=== PATIENT | female | born 1960 | race Caucasian/White ===

== ENCOUNTER → 2022-01-08 | Outpatient (CLI) | payer BC ==
[~2022-01-08] MED LIST: ALBU8.5H2 IH; CEPH500C PO; HYDR-3454 PO; LISI20TA PO; LOVA20TA2 PO; MULT-974 PO; OMEP20CA6 PO; ZOLOFT PO
[2022-01-08 10:44] VITALS: BP 159/82
== END ==
LOC: CARD 09:40
PROVIDERS: ATTEND Internal Medicine Cardiovascular Disease
DX: I11.9 Hypertensive heart disease without heart failure (principal); I25.10 Atherosclerotic heart disease of native coronary artery without angina pectoris
CPT/HCPCS: C8929; C8930; 93306

== ENCOUNTER 2022-01-15 08:00 | Day surgery (SDC) | payer BC ==
[2022-01-15] VITALS (10 sets, daily range): BP systolic 114–159; BP diastolic 65–76
[~2022-01-15] VITALS: Ht 160 cm; Wt 91.2 kg
[2022-01-15 07:25] LABS: BILIRUBIN,URINE NEGATIVE (NEGATIVE); CLARITY,URINE CLEAR; COLOR,URINE YELLOW; GLUCOSE, URINE (UA) NEGATIVE (NEGATIVE); HEMATOCRIT 36 % (35-52); KETONES,URINE NEGATIVE (NEGATIVE); LEUKOCYTE ESTERASE ,URINE NEGATIVE (NEGATIVE); MEAN CORPUSCULAR HEMOGLOBIN 25 pg (25-34); MEAN CORPUSCULAR HGB CONC 30 g/dL (32-36); MEAN CORPUSCULAR VOLUME 83 fL (80-99); NITRITE,URINE NEGATIVE (NEGATIVE); PH,URINE 5.5 (5-9); PLATELET COUNT 307 10^3/uL (130-400); PROTEIN,URINE NEGATIVE (NEGATIVE); WHITE BLOOD COUNT 5.4 10^3/uL (4.3-11.0)
[2022-01-15 07:38] LABS: INR 0.9 (0.8-1.4); PROTHROMBIN TIME PATIENT 12.8 SEC (12.2-14.7)
--- NOTE | 2022-01-15 07:41 | Diagnostic Imaging Report ---
Clinical indications: Patient with abnormal stress test. EXAM: Portable chest x-ray upright view. COMPARISON: None. FINDINGS: Lungs/pleura: Lungs are clear. There is no pneumothorax. There is no pleural effusion. Mediastinum: Unremarkable. Pulmonary vasculature: Unremarkable. Heart: Unremarkable. Bones/extrathoracic soft tissue: There are degenerative spurs involving the thoracic spine. IMPRESSION: There is no radiographic evidence of acute cardiopulmonary process. Dictated by: Dictated on workstation # [id number]
[2022-01-15 07:43] LABS: BACTERIA,URINE NEGATIVE /HPF
[2022-01-15 07:45] LABS: BILIRUBIN,TOTAL 0.5 MG/DL (0.1-1.0); CALCIUM 9.1 MG/DL (8.5-10.1); CREATININE SERUM 0.78 MG/DL (0.60-1.30); TOTAL PROTEIN 7.3 GM/DL (6.4-8.2)
[~2022-01-15 08:00] MED LIST changes: +ATOR10TA66 PO; +HEParin (CATH LAB) 2,000 ML IV ONE; +HEParin 1000 UNIT/ML (10ML VIAL) FOR BOLUS ONE; +IBUP-1780 PO; +LIDOCAINE 1% INJ 30 ML (XYLOCAINE) VIAL ONE; +LISI20TA26 PO; +MIDAZOLAM 5 MG/5 ML (VERSED) VIAL ONE; +MTP25TSR PO; +NITRO DRIP 25000 MCG/D5W 0 ML IV ONE; +NS IV 1000 ML 1,000 ML IV SCH; +NS IV 1000 ML 1,000 ML ONE; +OMEP-401 PO; +RT-ALBUINH INH; +SERT-414 PO; +VERAPAMIL 5 MG/2 ML (CALAN) VIAL IV ONE; +fentaNYL INJ 100 MCG/2 ML AMP ONE
--- NOTE | 2022-01-15 08:05 | Cardiac Procedure Note-CS/ASA ---
Pre-Procedure Note Pre-Op Procedure Note Date H&P Reviewed: Jan 15, 2022 Time H&P Reviewed: 08:05 History & Physical: H&P Reviewed, Patient Examed, No changes noted Pre-Operative Diagnosis: Hammertoes left 2, 4, 5 Conscious Sedation Pre-Proced Time 08:05 ASA Score 3 For ASA 3 and 4: Consider anesthesia and medical clearance. Also, for patients with a history of failed moderate sedation consider anesthesia. Airway Lungs Heart ASA score ASA 1: a normal healthy patient ASA 2: a patient with a mild systemic disease (mid diabetes, controlled hypertension, obesity ASA 3: a patient with a severe systemic disease that limits activity (angina, COPD, prior Myocardial infarction) ASA 4: a patient with an incapacitating disease that is a constant threat to life (CHF, renal failure) ASA 5: a moribund patient not expected to survive 24 hrs. (ruptured aneurysm) ASA 6: a declared brain- patient whose organs are being harvested. For emergent operations, add the letter E after the classification Mallampati Classification Grade 3 Sedation Plan Analgesia, Amnesia, Plan communicated to team members, Discussed options with patient/fam, Discussed risks with patient/fam The patient is an appropriate candidate to undergo the planned procedure, sedation, and anesthesia. The patient immediately re-assessed prior to indication. GUDELIA HOLBROOK MD Jan 15, 2022 08:05
[2022-01-15] MEDS ORDERED: IBUP-2473 PO (08:07)
--- NOTE | 2022-01-15 09:08 | Discharge Inst-Post CATH ---
Discharge Inst-CATH/EP Problems Reviewed?: Yes Post Cardiac Cath/EP D/C Inst Follow Up/Plan Appointment with Dr. Clark's office in 2 to 4 weeks <b>CARDIAC CATH/EP PROCEDURE DISCHARGE INSTRUCTIONS</b> ACTIVITY * Go Home directly and rest. * Limit activity of the leg (or wrist if it was used) for 7 days including aer obics, swimming, jogging, bicycling, etc. * Restrict stair-climbing for 7 days if possible, if not, climb up with your non-cath leg, then bring together on the same step. * Avoid lifting, pushing, pulling or excessive movement of the affected extremi ty for 7 days. * Customary sexual activity may be resumed after 2 days-use caution not to use a position that strains or causes pain to the affected extremity. * No driving for 24 hours. * NO SMOKING. * Avoid straining for bowel movements for 7 days. * Gentle walking on level ground is allowed. * Returning to work will depend on the type of procedure and the results. Your doctor will discuss this with you. CALL YOUR DOCTOR FOR ANY OF THE FOLLOWING: *If bleeding from the puncture site occurs- Apply gentle pressure to site with clean cloth and call your doctor or EMS. * If a knot or lump forms under the skin, increases in size, or causes pain. * If bruising appears to be worsening or moving further down your leg instead of disappearing. * Temperature above 101 F. CARE OF YOUR GROIN INCISION; * Bruising or purple discoloration of the skin near the puncture site is common. * You may shower only, no bathtub bathing for 5 days. Be careful to avoid slipping as your leg may feel stiff. * If a closure device was used on your femoral artery, please see the attached guide regarding care of the device and your leg. * Leave dressing on FOR 24 hours. CARE OF YOUR WRIST INCISION; * Bruising or purple discoloration of the skin near the puncture site is common. * You may shower. * DO NOT submerge wrist. * Leave dressing on FOR 24 hours. GUDELIA CLARK MD Jan 15, 2022 09:08
--- NOTE | 2022-01-15 09:11 | Cardiac Cath Report ---
Cardiac Cath Report Physician (s)/Draw In Hand (s) Physician GUDELIA HOLBROOK MD Pre-Procedure Diagnosis Pre-Procedure Diagnosis: Coronary artery disease Post-Procedure Note Procedure Start Date: Jan 15, 2022 Name of Procedure: Left heart catheterization Findings/Procedure Note PROCEDURE NOTE: 61-year-old lady with recurrent chest pain, had an abnormal stress test and scheduled for cardiac catheterization possible PTCA. After explaining the procedure to the patient, all pros and cons were explained, all questions were answered. The patient signed the consent and then she was placed in the cardiac catheterization laboratory. Groin was prepped in SL fashion local anesthesia was used. Attempt to access the radial artery has failed due to tortuosity in the radial artery. Sheath placed in the right femoral artery. Layton' right and left catheter were used to access the coronary system. Layton right catheter was prolapsed to the left ventricular cavity, pressure was measured, pullback LV to aorta was done, no left ventriculogram was done. At the end of the procedure the sheath was removed. Closure device was deployed FINDINGS: Hemodynamics LV 126/16, end-diastolic pressure of 16 Aorta 128/61 mean of 87 ANATOMY: Left Main is free of obstructive disease Left Anterior Descending is free of obstructive disease Left Circumflex is tortuous artery with no significant obstructive disease Right Coronary Artery is dominant artery with no obstructive disease LV Gram was not done, pressure was measured CONCLUSION: 1. No significant obstructive coronary artery disease 2. Normal left ventricular end-diastolic pressure DISCUSSION AND RECOMMENDATION: Abnormal stress test is probably due to extracardiac attenuation, no intervention is recommended Anesthesia Type: Conscious Sedation Estimated blood loss (mL): 15 ml Contrast Amount: 22 ml Total Radiation Dose: 219 mGy Post-Procedure Diagnosis Post-operative diagnosis: Chest pain Coronary artery disease Hypertension Hyperlipidemia GUDELIA HOLBROOK MD Jan 15, 2022 09:11
[2022-01-15] MEDS ORDERED: NS IV 1000 ML 1,000 ML IV SCH (09:15)
[2022-01-15] MEDS ORDERED: PATIENT MAY USE OWN MEDS, ALL PO SCH (09:15)
== END 2022-01-15 13:40 | disposition home or self-care (01) ==
LOC: CATH 08:00 → SDC 09:13 → CATH 13:40
PROVIDERS: ATTEND Internal Medicine Cardiovascular Disease
DX: R07.9 Chest pain, unspecified (principal); I25.10 Atherosclerotic heart disease of native coronary artery without angina pectoris; I10 Essential (primary) hypertension; E78.5 Hyperlipidemia, unspecified; I65.23 Occlusion and stenosis of bilateral carotid arteries; R00.2 Palpitations; E78.2 Mixed hyperlipidemia; Z87.891 Personal history of nicotine dependence; Z82.49 Family history of ischemic heart disease and other diseases of the circulatory system
CPT/HCPCS: 36140; 71045; 80053; 80061; 81000; 85027; 85610; 85730; 87081; 93005; 93458; C1760; C1894; 36415

== ENCOUNTER 2022-04-08 14:43 | Emergency (ER) | payer BC ==
[~2022-04-08] VITALS: Ht 160 cm; Wt 91.0 kg
[~2022-04-08 14:43] MED LIST changes: -HEParin (CATH LAB) 2,000 ML IV ONE; -HEParin 1000 UNIT/ML (10ML VIAL) FOR BOLUS ONE; +IBUP-2473 PO; -LIDOCAINE 1% INJ 30 ML (XYLOCAINE) VIAL ONE; -MIDAZOLAM 5 MG/5 ML (VERSED) VIAL ONE; -NITRO DRIP 25000 MCG/D5W 0 ML IV ONE; -NS IV 1000 ML 1,000 ML IV SCH; -NS IV 1000 ML 1,000 ML ONE; -VERAPAMIL 5 MG/2 ML (CALAN) VIAL IV ONE; -fentaNYL INJ 100 MCG/2 ML AMP ONE
--- NOTE | 2022-04-08 14:55 | ED Cardiac General ---
History of Present Illness General Stated Complaint: SOB; ELEV HR History of Present Illness Date Seen by Provider: Apr 08, 2022 Time Seen by Provider: 14:54 Initial Comments 82-year-old female with PMH of HTN/depression/HLD/asthma/cath in January 2022 which was negative, is here with complaints of tachycardia and palpitations earlier today. Patient states that her phone showed that her heart rate was 191 with normal blood pressure earlier today. Patient stated that at the time she thinks she had some palpitations. Patient has been having shortness of breath for the past week or so and has been using her inhalers, but it has not been helping much. Patient had COVID in 2021 in July, and she has had occasional palpitations since then. Patient also has a chronic cough that has been present since COVID. Patient has seen a commutator v ring assembler and been worked up for it but she has had a negative work-up so far. In the ER patient's heart rate and vitals are stable, and patient does not have any symptoms here in the ER. Denies chest pain, fever and chills, URI symptoms, nausea vomiting, abdominal pain, diarrhea. Allergies and Home Medications Allergies Coded Allergies: Sulfa (Sulfonamide Antibiotics) (Unverified Allergy, Unknown, 03/29/14) Patient Home Medication List Home Medication List Reviewed: Yes Albuterol Sulfate (Ventolin Hfa) 1 Puff Puff, 2 PUFF INH Q6H PRN for SHORTNESS OF BREATH, (Reported) Entered as Reported by: TASHIA CATHERINE on 01/15/22 075 Atorvastatin Calcium (Atorvastatin Calcium) 10 Mg Tablet, 10 MG PO DAILY, (Reported) Entered as Reported by: TASHIA CATHERINE on 01/15/22 075 Ibuprofen (Ibuprofen) 200 Mg Tablet, 800 MG PO Q6H PRN for PAIN-MILD (1-4), (Reported) Entered as Reported by: TASHIA CATHERINE on 01/15/22 08 Lisinopril (Lisinopril) 20 Mg Tablet, 20 MG PO DAILY, (Reported) Entered as Reported by: TASHIA CATHERINE on 01/15/22 075 Metoprolol Succinate (Metoprolol Succinate) 25 Mg Tab.er.24h, 25 MG PO HS, (Reported) Entered as Reported by: TASHIA CATHERINE on 01/15/22755 Omeprazole (Omeprazole) 20 Mg Tab.rap.dr, 20 MG PO DAILY, (Reported) Entered as Reported by: TASHIA CATHERINE on 01/15/22755 Sertraline HCl (Sertraline HCl) 100 Mg Tablet, 100 MG PO DAILY, (Reported) Entered as Reported by: TASHIA CATHERINE on 01/15/22755 Review of Systems Review of Systems Constitutional: no symptoms reported EENTM: No Symptoms Reported Respiratory: Cough, Shortness of Air Cardiovascular: Palpitations Gastrointestinal: No Symptoms Reported Genitourinary: No Symptoms Reported Musculoskeletal: no symptoms reported Skin: no symptoms reported Psychiatric/Neurological: No Symptoms Reported Endocrine: No Symptoms Reported Hematologic/Lymphatic: No Symptoms Reported Past Wugqocw-Xubozt-Zegcvc Hx Past Medical History Section, Gallbladder, Hysterectomy, Orthopedic High Cholesterol, Hypertension Gastroesophageal Reflux Physical Exam Vital Signs Vital Signs - First Documented 04/08/22 15:15 Temp 35.5 Pulse 85 Resp 22 B/P (MAP) 116/64 (81) Pulse Ox 97 O2 Delivery Room Air Capillary Refill : Height, Weight, BMI Height: 5'3.00" Weight: 188lbs. oz. 85.275731nf; 35.62 BMI Method: General Appearance: No Apparent Distress, WD/WN, Anxious HEENT: PERRL/EOMI Neck: Full Range of Motion Respiratory: Chest Non Tender, Lungs Clear, Normal Breath Sounds Cardiovascular: Regular Rate, Rhythm, No Edema Gastrointestinal: Normal Bowel Sounds, Non Tender, Soft Neurologic/Psychiatric: Alert, Oriented x3, No Motor/Sensory Deficits, Normal Mood/Affect, seed technician II-XII Norm as Tested Skin: Normal Color Focused Exam Lactate Level 04/08/22 15:00: Lactic Acid Level 0.95 Lactic Acid Level Laboratory Tests Test 04/08/22 15:00 Lactic Acid Level 0.95 MMOL/L (0.50-2.00) Progress/Results/Core Measures Results/Orders Lab Results Laboratory Tests Test 04/08/22 14:54 04/08/22 15:00 04/08/22 15:01 04/08/22 15:17 Range/Units White Blood Count 5.9 4.3-11.0 10^3/uL Red Blood Count 4.67 3.80-5.11 10^6/uL Hemoglobin 11.6 11.5-16.0 g/dL Hematocrit 37 35-52 % Mean Corpuscular Volume 79 L 80-99 fL Mean Corpuscular Hemoglobin 25 25-34 pg Mean Corpuscular Hemoglobin Concent 32 32-36 g/dL Red Cell Distribution Width 17.0 H 10.0-14.5 % Platelet Count 339 130-400 10^3/uL Mean Platelet Volume 9.1 9.0-12.2 fL Immature Granulocyte % (Auto) 0 % Neutrophils (%) (Auto) 50 42-75 % Lymphocytes (%) (Auto) 35 12-44 % Monocytes (%) (Auto) 8 0-12 % Eosinophils (%) (Auto) 5 0-10 % Basophils (%) (Auto) 1 0-10 % Neutrophils # (Auto) 3.0 1.8-7.8 10^3/uL Lymphocytes # (Auto) 2.1 1.0-4.0 10^3/uL Monocytes # (Auto) 0.5 0.0-1.0 10^3/uL Eosinophils # (Auto) 0.3 0.0-0.3 10^3/uL Basophils # (Auto) 0.1 0.0-0.1 10^3/uL Immature Granulocyte # (Auto) 0.0 0.0-0.1 10^3/uL Prothrombin Time 12.3 12.2-14.7 SEC INR Comment 0.9 0.8-1.4 Activated Partial Thromboplast Time 29 24-35 SEC D-Dimer 1.02 H 0.00-0.49 UG/ML Sodium Level 138 135-145 MMOL/L Potassium Level 3.7 3.6-5.0 MMOL/L Chloride Level 101 98-107 MMOL/L Carbon Dioxide Level 25 21-32 MMOL/L Anion Gap 12 5-14 MMOL/L Blood Urea Nitrogen 21 H 7-18 MG/DL Creatinine 0.94 0.60-1.30 MG/DL Estimat Glomerular Filtration Rate 68 BUN/Creatinine Ratio 22 Glucose Level 110 H 70-105 MG/DL Calcium Level 9.5 8.5-10.1 MG/DL Corrected Calcium 9.4 8.5-10.1 MG/DL Magnesium Level 2.0 1.6-2.4 MG/DL Total Bilirubin 0.2 0.1-1.0 MG/DL Aspartate Amino Transf (AST/SGOT) 17 5-34 U/L Alanine Aminotransferase (ALT/SGPT) 17 0-55 U/L Alkaline Phosphatase 133 40-136 U/L Troponin I < 0.30 <0.30 NG/ML Pro-B-Type Natriuretic Peptide 93.1 <125.0 PG/ML Total Protein 7.4 6.4-8.2 GM/DL Albumin 4.1 3.2-4.5 GM/DL Lactic Acid Level 0.95 0.50-2.00 MMOL/L Influenza Type A (RT-PCR) Not Detected Not Detecte Influenza Type B (RT-PCR) Not Detected Not Detecte SARS-CoV-2 RNA (RT-PCR) Not Detected Not Detecte Urine Color YELLOW Urine Clarity CLEAR Urine pH 6.0 5-9 Urine Specific Denbo 1.025 H 1.016-1.022 Urine Protein NEGATIVE NEGATIVE Urine Glucose (UA) NEGATIVE NEGATIVE Urine Ketones NEGATIVE NEGATIVE Urine Nitrite NEGATIVE NEGATIVE Urine Bilirubin NEGATIVE NEGATIVE Urine Urobilinogen 0.2 < = 1.0 MG/DL Urine Leukocyte Esterase TRACE H NEGATIVE Urine RBC (Auto) NEGATIVE NEGATIVE Urine RBC NONE /HPF Urine WBC 0-2 /HPF Urine Squamous Epithelial Cells NONE /HPF Urine Crystals NONE /LPF Urine Bacteria NEGATIVE /HPF Urine Casts NONE /LPF Urine Mucus MODERATE H /LPF Urine Culture Indicated NO My Orders Orders - NEW GOMEZ MD Continuous Ekg Monitoring (04/08/22 14:55) Ekg Tracing (04/08/22 14:55) Chest 1 View Ap/Pa Only (04/08/22 14:55) Cbc With Automated Diff (04/08/22 14:56) Comprehensive Metabolic Panel (04/08/22 14:56) Fibrin Degradation Products (04/08/22 14:56) Lactic Acid Analyzer (04/08/22 14:56) Magnesium (04/08/22 14:56) Protime With Inr (04/08/22 14:56) Partial Thromboplastin Time (04/08/22 14:56) Ua Culture If Indicated (04/08/22 14:56) Probnp Fs (04/08/22 14:56) Troponin I Fs (04/08/22 14:56) Covid 19 Inhouse Test (04/08/22 14:56) Influenza A And B By Pcr (04/08/22 14:56) Ct Angio Chest W (04/08/22 16:04) Iohexol Injection (Omnipaque 350 Mg/Ml 1 (04/08/22 16:15) Received Contrast (Hold Metformin- Contr (04/08/22 16:15) Ns (Ivpb) (Sodium Chloride 0.9% Ivpb Bag (04/08/22 16:15) Medications Given in ED Current Medications Medications Dose Ordered Sig/Dixie Route Start Time Stop Time Status Last Admin Dose Admin Iohexol 100 ml ONCE ONCE IV 04/08/22 16:15 04/08/22 16:41 DC 04/08/22 16:29 100 ML Sodium Chloride 100 ml ONCE ONCE IV 04/08/22 16:15 04/08/22 16:41 DC 04/08/22 16:29 100 ML Vital Signs/I&O 04/08/22 15:15 Temp 35.5 Pulse 85 Resp 22 B/P (MAP) 116/64 (81) Pulse Ox 97 O2 Delivery Room Air Progress Progress Note : Progress Note 1. PALPITATIONS, RESOLVED: - CXR: No acute finding - Labs: Unremarkable - Troponin/ EKG: Nonischemic -Patient experienced a one-time episode of palpitations and tachycardia with her phone showing a heart rate of 191 around noon today. Patient has not had any symptoms since then. In the ER patient has not had any symptoms at all. -Advised patient to call PCP and cardiology, and get a Holter monitor from them. -Advised to follow-up with PCP and cardiology in the next 3 days. -The patient was seen in the ED, and treated appropriately to presentation at a specific point in time. Patient is informed that there is a possibility that disease and illness can evolve and change in acuity rapidly or slowly after patient is discharged from the ER. Precautionary advice given to the patient for immediate return to ER if symptoms worsen or do not resolve, and to seek emergency care sooner rather than later. Pt also advised on the importance of PCP follow up and compliance with management and follow up plan with PCP and/or specialist, as this is part of the management plan. Pt verbally expressed understanding. 2. EARLY UTI: - UA : positive LE - Keflex bid for 5 days -Advised adequate water intake 3. ELEVATED D-DIMER: - D-dimer: 1.02 - CTA CHEST: Negative for PE Initial ECG Impression Date: Apr 08, 2022 Initial ECG Impression Time: 14:49 Initial ECG Rate: 85 Initial ECG Rhythm: Normal Sinus Initial ECG Intervals: Normal (With occasional PVCs) Initial ECG Impression: Nonspecific Changes Initial ECG Comparisson: No Previous ECG Available Diagnostic Imaging Diagonstic Imaging: Xray Plain Films/CT/US/NM/MRI: chest Comments [facility] [place], [place] NAME: MARY LUNA [facility] REC#: [id number] PT STATUS: REG ER : 1960 PHYSICIAN: NEW GOMEZ MD ADMIT DATE: 04/08/22/ER FS Draft Date of Exam:04/08/22 CT ANGIO CHEST W PROCEDURE: CT angiography of the chest with contrast. TECHNIQUE: Multiple contiguous axial images were obtained through the chest after uneventful bolus administration of intravenous contrast. 3D reconstructed CTA MIP acquisitions were also performed. Auto Exposure Controls were utilized during the CT exam to meet ALARA standards for radiation dose reduction. INDICATION: Elevated D-dimer. FINDINGS: There are no pulmonary arterial filling defects. There are no findings of pulmonary arterial embolus. The thoracic aorta is patent, nonaneurysmal, and nonacute. No findings of pulmonary edema or pneumonia. No suspicious lung mass or pulmonary nodularity. There is a small hiatal hernia. There is no thoracic adenopathy. No acute chest wall pathology. Visualized upper abdomen is nonacute. IMPRESSION: Negative for PE or other acute abnormalities. Dictated on workstation # [id number] Dict: 04/08/22 1641 Trans: 04/08/22 1644 [id number] Interpreted by: YA TORRES Electronically signed by: [facility] [place], [place] NAME: MARY LUNA [facility] REC#: [id number] PT STATUS: REG ER : 1960 PHYSICIAN: NEW GOMEZ MD ADMIT DATE: 04/08/22/ER FS Draft Date of Exam:04/08/22 CHEST 1 VIEW AP/PA ONLY Indication: Palpitations, chest pain. Findings: Lungs clear. No failure., effusion or pneumothorax. Impression: No acute-appearing abnormality. Dictated on workstation # [id number] Dict: 04/08/22 1523 Trans: 04/08/22 1525 CV [id number] Interpreted by: YA TORRES Electronically signed by: Departure Impression Primary Impression: Palpitations Additional Impressions: Tachycardia, paroxysmal Elevated d-dimer UTI (urinary tract infection) Disposition: 01 HOME, SELF-CARE Condition: Improved Departure-Patient Inst. Referrals: MOLLY GARNICA MD (PCP) Primary Care Physician Patient Instructions: Palpitations ED, Tachycardia (DC), Palpitations (DC), Urinary Tract Infection, Adult (DC), Urinary Tract Infections in Adults Add. Discharge Instructions: -Advised patient to call PCP and cardiology, and get a Holter monitor from them. -Advised to follow-up with PCP and cardiology in the next 3 days. -Return to ER if symptoms return. - Keflex bid for 5 days -Advised adequate water intake Scripts Cephalexin (Cephalexin) 500 Mg Tablet 500 MG PO BID for 5 Days, #10 TAB Prov: NEW GOMEZ MD 04/08/22 NEW GOMEZ MD Apr 08, 2022 14:55
[2022-04-08 15:25] LABS: BASOPHILS # (AUTO) 0.1 10^3/uL (0.0-0.1); BASOPHILS % (AUTO) 1 % (0-10); EOSINOPHILS # (AUTO) 0.3 10^3/uL (0.0-0.3); EOSINOPHILS % (AUTO) 5 % (0-10); HEMATOCRIT 37 % (35-52); HEMOGLOBIN 11.6 g/dL (11.5-16.0); LYMPHOCYTES # (AUTO) 2.1 10^3/uL (1.0-4.0); LYMPHOCYTES % (AUTO) 35 % (12-44); MEAN CORPUSCULAR HEMOGLOBIN 25 pg (25-34); MEAN CORPUSCULAR HGB CONC 32 g/dL (32-36); MEAN CORPUSCULAR VOLUME 79 fL (80-99); MEAN PLATELET VOLUME 9.1 fL (9.0-12.2); MONOCYTES # (AUTO) 0.5 10^3/uL (0.0-1.0); MONOCYTES % (AUTO) 8 % (0-12); NEUTROPHILS % (AUTO) 50 % (42-75); PLATELET COUNT 339 10^3/uL (130-400); WHITE BLOOD COUNT 5.9 10^3/uL (4.3-11.0)
--- NOTE | 2022-04-08 15:25 | Diagnostic Imaging Report ---
Indication: Palpitations, chest pain. Findings: Lungs clear. No failure., effusion or pneumothorax. Impression: No acute-appearing abnormality. Dictated by: Dictated on workstation # [id number]
[2022-04-08 15:26] LABS: BILIRUBIN,URINE NEGATIVE (NEGATIVE); CLARITY,URINE CLEAR; COLOR,URINE YELLOW; GLUCOSE, URINE (UA) NEGATIVE (NEGATIVE); KETONES,URINE NEGATIVE (NEGATIVE); LEUKOCYTE ESTERASE ,URINE TRACE (NEGATIVE); NITRITE,URINE NEGATIVE (NEGATIVE); PROTEIN,URINE NEGATIVE (NEGATIVE)
[2022-04-08 15:27] LABS: FIBRIN DEGRADATION PRODUCTS 1.02 UG/ML (0.00-0.49); INR 0.9 (0.8-1.4); PROTHROMBIN TIME PATIENT 12.3 SEC (12.2-14.7)
[2022-04-08 15:34] LABS: BACTERIA,URINE NEGATIVE /HPF; WBC,URINE 0-2 /HPF
[2022-04-08 15:35] LABS: SODIUM 138 MMOL/L (135-145)
[2022-04-08 15:36] LABS: ALANINE AMINOTRANSFERASE 17 U/L (0-55); ALBUMIN 4.1 GM/DL (3.2-4.5); ALKALINE PHOSPHATASE 133 U/L (40-136); BILIRUBIN,TOTAL 0.2 MG/DL (0.1-1.0); BUN/CREATININE RATIO 22; CALCIUM 9.5 MG/DL (8.5-10.1); CARBON DIOXIDE 25 MMOL/L (21-32); CHLORIDE 101 MMOL/L (98-107); CREATININE SERUM 0.94 MG/DL (0.60-1.30); GFR ESTIMATED 68; GLUCOSE 110 MG/DL (70-105); POTASSIUM 3.7 MMOL/L (3.6-5.0); TOTAL PROTEIN 7.4 GM/DL (6.4-8.2)
[2022-04-08] MEDS ORDERED: NS 100 ML (IVPB) BAG IV ONE (16:15)
[2022-04-08] MEDS ORDERED: IOHEXOL 350 MG/ML 100 ML (OMNIPAQUE 350) VIAL IV ONE (16:15)
[2022-04-08] MEDS ORDERED: HOLD METFORMIN - RECEIVED CONTRAST 20 ML VIAL IV SCH (16:15)
--- NOTE | 2022-04-08 16:44 | Diagnostic Imaging Report ---
PROCEDURE: CT angiography of the chest with contrast. TECHNIQUE: Multiple contiguous axial images were obtained through the chest after uneventful bolus administration of intravenous contrast. 3D reconstructed CTA MIP acquisitions were also performed. Auto Exposure Controls were utilized during the CT exam to meet ALARA standards for radiation dose reduction. INDICATION: Elevated D-dimer. FINDINGS: There are no pulmonary arterial filling defects. There are no findings of pulmonary arterial embolus. The thoracic aorta is patent, nonaneurysmal, and nonacute. No findings of pulmonary edema or pneumonia. No suspicious lung mass or pulmonary nodularity. There is a small hiatal hernia. There is no thoracic adenopathy. No acute chest wall pathology. Visualized upper abdomen is nonacute. IMPRESSION: Negative for PE or other acute abnormalities. Dictated by: Dictated on workstation # [id number]
[2022-04-08] MEDS ORDERED: CEPH500T PO (16:54)
[2022-04-08 16:58] VITALS: BP 122/71
== END 2022-04-08 16:59 | disposition home or self-care (01) ==
LOC: ER FS 14:43 → EDUNIT# 14:43 → ER FS 16:59
DX: I47.9 Paroxysmal tachycardia, unspecified (principal); N39.0 Urinary tract infection, site not specified; R00.2 Palpitations; R79.1 Abnormal coagulation profile; Z20.822 Contact with and (suspected) exposure to COVID-19; Z88.1 Allergy status to other antibiotic agents
CPT/HCPCS: 36415; 71045; 71275; 80053; 81000; 83605; 83735; 83880; 84484; 85025; 85379; 85610; 85730; 87636; 93005; Q9967

== ENCOUNTER 2022-05-14 11:30 | Day surgery (SDC) | payer BC ==
[~2022-05-14] VITALS: Ht 160 cm; Wt 94.5 kg
--- NOTE | 2022-05-14 10:53 | Implantation of Loop Monitor ---
Implant of Loop Monitior IMPLANTATION OF LOOP MONITOR REPORT DATE OF PROCEDURE: 05/14/22 PREOP DIAGNOSIS: Paroxysmal atrial fibrillation POSTOP DIAGNOSIS: Paroxysmal atrial fibrillation PROCEDURE DETAILS: The patient is a 62 female with history of paroxysmal atrial fibrillation requiring long-term surveillance. Therefore implantable loop recorder was discussed and agreed with the patient. Informed consent was taken. All risks and complications were discussed at length. The patient was draped and prepped in the usual sterile fashion. Local anesthesia was lidocaine, which was given in the substernal area close to the 4th intercostal space. Loop monitor [employer] with serial number [id number] was implanted according to the protocol. Steri- Strips were placed at the end of the procedure. There were no complications and the patient tolerated the procedure well. ANESTHESIA: Local anesthesia with lidocaine. COMPLICATIONS: None CONTRAST/FLUOROSCOPY: None CONCLUSION: Successful implantation of loop monitor with no complication FINAL DIAGNOSIS: Paroxysmal atrial fibrillation Palpitation Sleep apnea Hypertension GDUELIA HOLBROOK MD May 14, 2022 10:53
[~2022-05-14 11:30] MED LIST changes: +CEPH500T PO; +LIDOCAINE 1% INJ 20 ML VIAL ONE
== END 2022-05-14 11:55 | disposition home or self-care (01) ==
LOC: CATH 11:30
PROVIDERS: ATTEND Internal Medicine Cardiovascular Disease
DX: I48.0 Paroxysmal atrial fibrillation (principal); R00.2 Palpitations; I10 Essential (primary) hypertension; G47.33 Obstructive sleep apnea (adult) (pediatric); I25.10 Atherosclerotic heart disease of native coronary artery without angina pectoris; Z79.899 Other long term (current) drug therapy; Z86.16 Personal history of COVID-19; E78.2 Mixed hyperlipidemia; Z87.891 Personal history of nicotine dependence; Z82.49 Family history of ischemic heart disease and other diseases of the circulatory system; F41.9 Anxiety disorder, unspecified; F32.A Depression, unspecified
CPT/HCPCS: 33285; C1764; G0399

== ENCOUNTER 2022-05-14 11:49 | Outpatient (CLI) | payer BC ==
[~2022-05-14 11:49] MED LIST changes: -LIDOCAINE 1% INJ 20 ML VIAL ONE
== END 2022-05-14 12:55 ==
LOC: SLEEP 11:49
PROVIDERS: ATTEND Physician Assistant
DX: G47.33 Obstructive sleep apnea (adult) (pediatric) (principal)